=== PATIENT | female | born 1980 | race Caucasian/White ===

== ENCOUNTER 2018-12-12 09:19 | Emergency (ER) | payer OTHER ==
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
[2018-12-12 11:38] LABS: Hematocrit 39 % (35-47); Hemoglobin 13.4 g/dL (12.0-16.0); Mean Corpuscular HGB Conc 35 g/dL (31-36); Mean Corpuscular Hemoglobin 36 pg (27-31); Mean Corpuscular Volume 105 fL (80-97); Red Blood Count 3.69 10^6 /uL (3.70-4.87); Red Cell Distribution Width 13 % (10-15); White Blood Count 7.7 10^3/uL (3.5-10.8)
[2018-12-12 11:39] LABS: ABS Eosinophils 0.2 10^3/ul (0-0.6); ABS Lymphocytes 0.9 10^3/ul (1.0-4.8); ABS Monocytes 0.7 10^3/ul (0-0.8); ABS Neutrophils 5.8 10^3/ul (1.5-7.7); Eosinophil % 3.2 %; Lymphocyte % 11.7 %
[2018-12-12 11:53] LABS: ALT 22 U/L (7-52); AST 34 U/L (13-39); Albumin 4.3 g/dL (3.2-5.2); Albumin/Globulin Ratio 1.9 (1-3); Alkaline Phosphatase 80 U/L (34-104); Anion Gap 6 mmol/L (2-11); BUN/Creatinine Ratio 17.3 (8-20); Blood Urea Nitrogen 13 mg/dL (6-24); CO2 Carbon Dioxide 29 mmol/L (22-32); Calcium 9.3 mg/dL (8.6-10.3); Chloride 104 mmol/L (101-111); EGFR African American 104.1 (>60); Globulin 2.3 g/dL (2-4); Glucose 91 mg/dL (70-100); Potassium 4.7 mmol/L (3.5-5.0); Sodium 139 mmol/L (135-145); Total Protein 6.6 g/dL (6.4-8.9)
[2018-12-12 12:00] LABS: HCG Pregnancy < 0.60 mIU/mL
[2018-12-12 12:19] VITALS: BP 135/86
[2018-12-12 12:25] LABS: Mean Platelet Volume 9.6 fL (7.4-10.4); Platelet Count 136 10^3/uL (150-450)
== END 2018-12-12 12:19 | disposition home or self-care (01) ==
LOC: ED 09:19
DX: M25.562 Pain in left knee (principal); S50.11XA Contusion of right forearm, initial encounter; S80.12XA Contusion of left lower leg, initial encounter; S70.12XA Contusion of left thigh, initial encounter; V48.5XXA Car driver injured in noncollision transport accident in traffic accident, initial encounter; Y92.410 Unspecified street and highway as the place of occurrence of the external cause; M54.9 Dorsalgia, unspecified; M79.601 Pain in right arm; F17.200 Nicotine dependence, unspecified, uncomplicated; R07.81 Pleurodynia
CPT/HCPCS: 36415; 71046; 80053; 84702; 85025; 99282